=== PATIENT | female | born 1975 | race Caucasian/White ===

== ENCOUNTER 2024-06-07 07:56 | Outpatient (CLI) | payer BC, SELFPAY ==
--- NOTE | 2024-06-07 09:26 | P.ANES_ITS ---
Anesthesia Charges Start Date/Time Anesthesia Start Date: 06/07/24 Anesthesia Start Time: 09:01 Stop Date/Time Anesthesia Stop Date: 06/07/24 Anesthesia Stop Time: : Coding CPT Codes CPT Codes: SHAE LWR INTST SCR COLSC - 84263 ([id number]) P1 - NORMAL HEALTHY PATIENT, QK - BLOW UP OPERATOR 2-4 CNCRNT ANES PROC, QX - SOLAR ENGINEER SVC W/ MED DIRECTION
--- NOTE | 2024-06-07 09:26 | W.ANESCHARGE ---
Anesthesia Charges Start Date/Time Anesthesia Start Date: 06/07/24 Anesthesia Start Time: 09:01 Stop Date/Time Anesthesia Stop Date: 06/07/24 Anesthesia Stop Time: : Coding CPT Codes CPT Codes: SHAE LWR INTST SCR COLSC - 73658 ([id number]) P1 - NORMAL HEALTHY PATIENT, QK - MIX MILL TENDER 2-4 CNCRNT ANES PROC, QX - HOLIDAY DETECTOR OPERATOR SVC W/ MED DIRECTION
--- NOTE | 2024-06-07 09:29 | P.ANES_ITS ---
Anesthesia Charges Start Date/Time Anesthesia Start Date: 06/07/24 Anesthesia Start Time: 09:01 Stop Date/Time Anesthesia Stop Date: 06/07/24 Anesthesia Stop Time: : Coding CPT Codes CPT Codes: SHAE LWR INTST SCR COLSC - [id number] ([id number]) P1 - NORMAL HEALTHY PATIENT, QK - MOISTURE METER OPERATOR 2-4 CNCRNT ANES PROC, QX - MANAGER WOUND CARE SVC W/ MED DIRECTION
--- NOTE | 2024-06-07 09:29 | W.ANESCHARGE ---
Anesthesia Charges Start Date/Time Anesthesia Start Date: 06/07/24 Anesthesia Start Time: 09:01 Stop Date/Time Anesthesia Stop Date: 06/07/24 Anesthesia Stop Time: : Coding CPT Codes CPT Codes: SHAE LWR INTST SCR COLSC - [id number] ([id number]) P1 - NORMAL HEALTHY PATIENT, QK - CASHIER MANAGER 2-4 CNCRNT ANES PROC, QX - HUMAN RESOURCES SUPPORT SPECIALIST SVC W/ MED DIRECTION
== END 2024-06-07 07:57 | disposition home or self-care (01) ==
PROVIDERS: PCP Family Medicine; Visit Provider Surgery
DX: Z12.11 Encounter for screening for malignant neoplasm of colon (principal); Z83.719 Family history of colon polyps, unspecified
CPT/HCPCS: 00812; 45378; J2704

== ENCOUNTER 2024-07-20 16:11 | Outpatient (CLI) | payer BC, SELFPAY ==
--- NOTE | 2024-07-20 16:20 | CRLHL7_ITS ---
For Patients: As a result of the Century Cures Act, medical imaging exams and procedure reports are released immediately into your electronic medical record. You may view this report before your referring provider. If you have questions, please contact your health care provider. INDICATION: BILATERAL SCREENING MAMMOGRAM, ASYMPTOMATIC 48 F COMPARISON: FROM [facility] 03/31/23, 08/09/20, 05/05/19 TECHNIQUE: CC and MLO views were obtained. These mammographic images have been obtained using full-field digital technique. These mammographic images were interpreted with the benefit of computer aided detection and tomosynthesis. BREAST COMPOSITION: The breasts are heterogeneously dense, which may obscure small masses. FINDINGS: No suspicious findings. ASSESSMENT: BI-RADS 1 Negative RECOMMENDATION: Annual screening mammogram. A lay language report of this examination will be provided to the patient. Dictated by: Gregorio Tyler MD @ 07/28/2024 12:32:28 (Electronically Signed)
== END 2024-07-20 16:12 | disposition home or self-care (01) ==
LOC: MAMMO 16:11
PROVIDERS: PCP Family Medicine; Visit Provider Family Medicine
DX: Z12.31 Encounter for screening mammogram for malignant neoplasm of breast (principal); R92.333 Mammographic heterogeneous density, bilateral breasts
CPT/HCPCS: 77063; 77067